=== PATIENT | female | born 1945 | race Caucasian/White ===

== ENCOUNTER 2024-08-23 08:23 | Inpatient (IN) | payer MEDICARE ==
[2024-08-23] MEDS ORDERED: NOREPINEPHRINE 8 MG/250 ML-D5W 250 ML ONE (08:34)
[2024-08-23] MEDS ORDERED: Sodium Chloride 0.9% 100 ML ONE (08:50)
[2024-08-23] MEDS ORDERED: Cefepime 2 GM VIAL ONE (08:50)
[2024-08-23 09:01] LABS: #Basophils 0.06 10x3/uL (0.0-0.2); %Basophils 0.4 % (0.0-1.0); %Eosinophils 0.6 % (0.0-10.0); %Lymphocytes 7.1 % (21.0-51.0); %Monocytes 7.8 % (0.0-10.0); %Neutrophils 83.3 % (42.0-75.0); Hematocrit 36.2 % (36.0-47.0); Hemoglobin 11.4 g/dL (12.0-16.0); Mean Corpuscular HGB CONC 31.5 g/dL (32.0-36.0); Mean Corpuscular Hemoglobin 35.1 pg (27.0-31.0); Mean Corpuscular Volume 111.4 fL (78.0-98.0); Mean Platelet Volume 12.5 fL (7.4-10.4); Platelet Count 214 10x3/uL (130-400); RBC Distribution Width 19.9 % (11.5-14.5); Red Blood Cell (RBC) Count 3.25 mill/uL (4.20-5.40)
[2024-08-23 09:16] LABS: Bacteria/HPF 4+ HPF (None Seen); Bilirubin Negative (Negative); Blood, Urine 3+ (Negative); CAUTI Indications for Culture Alt mental st,lethar; Clarity Extra Turbid (Clear); Glucose, Urine (Dipstick) Normal (Negative); Ketone, Urine Trace mg/dL (Negative); Leukocyte 500 Leu/uL (Negative); Nitrite Negative (Negative); Protein, Urine (Dipstick) 100 mg/dL (Neg-Trace); RBC/HPF Greater than 50 HPF (0-3); Specific Gravity, Urine 1.024 (1.002-1.036); Squamous Epithelial 0-3 HPF (0-3); Urobilinogen Normal mg/dL (Less than 2); WBC/HPF Greater than 50 HPF (0-3); Yeast-Budding 3+ HPF (None Seen); pH, Urine 5.5 (5.0-9.0)
[2024-08-23 09:16] LABS: Actual Bicarbonate (HCO3v) 20.4 mEq/L (22-28); Analyzer IN Cardio ER; Base Excess -8.2 mEq/L (-2.0 to +3.0); Calcium, Ionized (venous) 1.08 mmol/L (1.16-1.32); Chloride (VBG) 106 mmol/L (98-106); Hematocrit-VBG 41 % (36.0-47.0); Hemoglobin (Hb) 13.9 g/dL (11.7-16.1); Potassium (VBG) 4.84 mmol/L (3.70-5.30); Sodium 139 mmol/L (133-146)
[2024-08-23 09:17] LABS: Urine Culture Reflex Yes Yes
[2024-08-23 09:21] LABS: pH (venous) 7.189 (7.32-7.43)
[2024-08-23 09:29] LABS: INR-International Normal Ratio 5.1; Prothrombin Time 47.3 sec (12.0-14.7)
[2024-08-23 09:30] LABS: PTT 57.8 sec (22.9-36.1)
[2024-08-23 09:33] LABS: Burr Cells MODERATE= 6-15 cells HPF (0-1); Macrocytosis SLIGHT = 6-15 cells HPF (0-5); Platelet Adequacy Comment Platelets Normal; Poikilocytosis SLIGHT = 6-15 cells HPF (0-5); Polychromasia SLIGHT = 2-3 cells HPF (0-2)
[2024-08-23 09:41] LABS: ALT (SGPT) Less than 5 U/L (8-55); AST (SGOT) 15 U/L (5-34); Albumin 1.9 g/dL (3.4-4.8); Alkaline Phosphatase 165 U/L (40-110); Anion Gap 20 mmol/L (10-20); BUN (Urea Nitrogen) 86 mg/dL (9.8-20.1); Bilirubin, Total 0.9 mg/dL (0.2-1.2); Calc. Creatinine Clearance 0 mL/min (70-130); Calcium 7.9 mg/dL (7.8-10.44); Carbon Dioxide 19 mmol/L (23-31); Chloride 107 mmol/L (98-107); Estimated GFR 8; Globulin 2.8 g/dL (2.4-3.5); Glucose 76 mg/dL (83-110); Potassium 4.9 mmol/L (3.5-5.1); Protein, Total 4.7 g/dL (5.8-8.1); Sodium 141 mmol/L (136-145)
[2024-08-23] MEDS ORDERED: dilTIAZem 25 MG/5 ML VIAL ONE (09:41)
[2024-08-23 09:44] LABS: Troponin I 0.069 ng/mL (< 0.028)
[2024-08-23] MEDS ORDERED: Diltiazem HCl/D5W 125 ML ONE (09:45)
[2024-08-23] MEDS ORDERED: Dextrose 5% in Water 1,000 ML IV PRN (11:13)
[2024-08-23] MEDS ORDERED: Glucagon 1 MG/ML KIT IM PRN (11:13)
[2024-08-23] MEDS ORDERED: Dextrose 50% Abboject 50 ML SYRINGE SLOW IVP PRN (11:13)
[2024-08-23] MEDS ORDERED: Insulin Lispro 100 UNIT/ML 10 ML VIAL SC PRN ×2 (11:18)
[2024-08-23 11:45] LABS: Lactic Acid 1.72 mmol/L (0.5-2.2)
[2024-08-23] MEDS ORDERED: VANCOMYCIN IVPB PRN (11:45)
[2024-08-23 13:32] LABS: Hematocrit 37.6 % (36.0-47.0); Hemoglobin 11.7 g/dL (12.0-16.0); Platelet Count 231 10x3/uL (130-400)
[2024-08-23 13:35] LABS: Troponin I 0.254 ng/mL (< 0.028)
[2024-08-23] MEDS ORDERED: Vancomycin Dose by Levels Sliding Scale (Wt 71-99) FS SCH (13:45)
[2024-08-23] MEDS ORDERED: Heparin 25,000 units/D5W 500 ML ONE (13:48)
[2024-08-23] MEDS: Heparin 10,000 UNITS/ 10 ML VIAL SLOW IVP SCH (14:08)
[2024-08-23] MEDS: Heparin 25,000 units/D5W 500 ML IVPB SCH (14:09)
[2024-08-23] MEDS: Vancomycin (BATCH) 1.75 GM in Premix 1 BAG IVPB SCH (14:30)
[2024-08-23] MEDS: Albumin 25% 25 GM (100 mL) BOT IVPB SCH (15:32)
[2024-08-23] MEDS: Sodium Chloride 0.9% 1,000 ML IV SCH (15:32)
[2024-08-23 16:46] LABS: Troponin I 0.348 ng/mL (< 0.028)
[2024-08-23] MEDS: FLU (Fluad Triv) TS24-25 (65UP)/MF59C/PF 45 MCG/0.5 ML Syringe IM ONE (17:58)
[2024-08-23 18:14] LABS: Creatinine, Urine 137.62 mg/dL (47-110)
[2024-08-23 19:25] LABS: Anion Gap 16 mmol/L (10-20); BUN (Urea Nitrogen) 81 mg/dL (9.8-20.1); Calc. Creatinine Clearance 11 mL/min (70-130); Calcium 7.6 mg/dL (7.8-10.44); Carbon Dioxide 14 mmol/L (23-31); Chloride 113 mmol/L (98-107); Estimated GFR 9; Glucose 88 mg/dL (83-110); Potassium 4.4 mmol/L (3.5-5.1); Sodium 139 mmol/L (136-145)
[2024-08-23 19:48] LABS: Troponin I 0.559 ng/mL (< 0.028)
[2024-08-23] MEDS: Acetaminophen 325 MG TAB PO PRN (20:09)
[2024-08-23 22:30] LABS: PTT Greater than 250.0 sec (22.9-36.1)
[2024-08-23] MEDS: Sodium Bicarb 50 MEQ/50 ML Abboject 8.4% SYRINGE IVP SCH (23:35)
[2024-08-24] MEDS: Sodium Bicarb 50 MEQ/50 ML Abboject 8.4% SYRINGE ONE (00:10)
[2024-08-24] MEDS: Diltiazem HCl/D5W 125 MG in Premix 1 BAG IVPB SCH (03:12)
[2024-08-24] MEDS: NOREPINEPHRINE 8 MG/250 ML-D5W 250 ML IVPB SCH (04:31)
[2024-08-24 07:06] LABS: #Basophils 0.07 10x3/uL (0.0-0.2); %Basophils 0.5 % (0.0-1.0); %Eosinophils 0.8 % (0.0-10.0); %Lymphocytes 7.1 % (21.0-51.0); Hematocrit 29.3 % (36.0-47.0); Hemoglobin 9.5 g/dL (12.0-16.0); Mean Corpuscular HGB CONC 32.4 g/dL (32.0-36.0); Mean Corpuscular Hemoglobin 35.4 pg (27.0-31.0); Mean Corpuscular Volume 109.3 fL (78.0-98.0); Mean Platelet Volume 12.1 fL (7.4-10.4); Platelet Count 180 10x3/uL (130-400); RBC Distribution Width 19.6 % (11.5-14.5); Red Blood Cell (RBC) Count 2.68 mill/uL (4.20-5.40)
[2024-08-24 07:26] LABS: ALT (SGPT) Less than 5 U/L (8-55); AST (SGOT) 16 U/L (5-34); Alkaline Phosphatase 119 U/L (40-110); Anion Gap 16 mmol/L (10-20); BUN (Urea Nitrogen) 84 mg/dL (9.8-20.1); Calc. Creatinine Clearance 12 mL/min (70-130); Calcium 7.7 mg/dL (7.8-10.44); Carbon Dioxide 18 mmol/L (23-31); Chloride 111 mmol/L (98-107); Estimated GFR 9; Globulin 2.1 g/dL (2.4-3.5); Glucose 95 mg/dL (83-110); Protein, Total 5.1 g/dL (5.8-8.1); Sodium 141 mmol/L (136-145)
[2024-08-24 07:32] LABS: PTT 207.6 sec (22.9-36.1)
[2024-08-24] MEDS: Sodium Bicarbonate 150 MEQ in Sterile Water 1,000 ML IV SCH (09:15)
[2024-08-24] MEDS: Cefepime 1 GM in Sodium Chloride 0.9% 100 ML IVPB SCH (09:15)
[2024-08-24 09:30] LABS: Vancomycin, Trough 15.9 ug/mL
[2024-08-24] MEDS ORDERED: Vancomycin HCl 750 MG in Sodium Chloride 0.9% 250 ML 250 ML IVPB SCH (11:15)
[2024-08-24] MEDS: Vancomycin HCl 500 MG in Sodium Chloride 0.9% 100 ML IV SCH (11:26)
[2024-08-24] MEDS: Lactated Ringer's 500 ML IV SCH (14:28)
[2024-08-24 14:53] LABS: Hematocrit 27.5 % (36.0-47.0); Hemoglobin 8.9 g/dL (12.0-16.0)
[2024-08-24 15:40] LABS: PTT 195.7 sec (22.9-36.1)
[2024-08-24 15:45] VITALS: BMI 33.7
[2024-08-24 15:54] VITALS: BP 101/65
[2024-08-24] MEDS: Ondansetron PF 4 MG/2 ML Vial IVP PRN (18:32)
[2024-08-24] MEDS: Senokot S 8.6-50 MG TAB PO SCH (20:24)
[2024-08-24] MEDS: Simvastatin 10 MG TAB PO SCH (20:24)
[2024-08-25 04:53] VITALS: BMI 34.6
[2024-08-25 06:28] LABS: #Basophils 0.03 10x3/uL (0.0-0.2); %Basophils 0.3 % (0.0-1.0); %Eosinophils 2.7 % (0.0-10.0); %Lymphocytes 7.4 % (21.0-51.0); %Monocytes 10.9 % (0.0-10.0); %Neutrophils 78.2 % (42.0-75.0); Hematocrit 28.3 % (36.0-47.0); Hemoglobin 9.2 g/dL (12.0-16.0); Mean Corpuscular HGB CONC 32.5 g/dL (32.0-36.0); Mean Corpuscular Hemoglobin 34.3 pg (27.0-31.0); Mean Corpuscular Volume 105.6 fL (78.0-98.0); Mean Platelet Volume 12.6 fL (7.4-10.4); Platelet Count 177 10x3/uL (130-400); RBC Distribution Width 19.2 % (11.5-14.5); Red Blood Cell (RBC) Count 2.68 mill/uL (4.20-5.40)
[2024-08-25 06:37] LABS: Albumin 2.6 g/dL (3.4-4.8); Anion Gap 17 mmol/L (10-20); Calcium 7.3 mg/dL (7.8-10.44); Carbon Dioxide 23 mmol/L (23-31); Chloride 103 mmol/L (98-107); Globulin 1.8 g/dL (2.4-3.5); Glucose 76 mg/dL (83-110); Potassium 3.6 mmol/L (3.5-5.1); Protein, Total 4.4 g/dL (5.8-8.1); Sodium 139 mmol/L (136-145)
[2024-08-25 06:51] LABS: Troponin I 2.134 ng/mL (< 0.028)
[2024-08-25 07:05] LABS: Magnesium 1.5 mg/dL (1.6-2.6); Phosphorus 4.9 mg/dL (2.3-4.7)
[2024-08-25 07:35] LABS: Alkaline Phosphatase 111 U/L (40-110)
[2024-08-25 07:38] LABS: ALT (SGPT) Less than 5 U/L (8-55); AST (SGOT) 13 U/L (5-34)
[2024-08-25 07:58] LABS: BUN (Urea Nitrogen) 86 mg/dL (9.8-20.1); Calc. Creatinine Clearance 12 mL/min (70-130); Estimated GFR 9
[2024-08-25 09:34] LABS: Vancomycin, Random 19.4 ug/mL (See Comment)
[2024-08-25] MEDS: Polyethylene Glycol 3350 17 GM Packet PO SCH (09:38)
[2024-08-25] MEDS: Pantoprazole DR 40 MG TAB PO SCH (09:40)
[2024-08-25] MEDS ORDERED: Vancomycin Dose by Levels Sliding Scale (Wt 71-99) FS SCH (09:45)
[2024-08-25] MEDS: Potassium Chloride 20 MEQ TAB PO SCH (10:15)
[2024-08-25] MEDS: Magnesium Sulfate In Water 4 GM in Premix 1 BAG IVPB SCH (10:16)
[2024-08-25 10:38] LABS: Critical Call Chem Troponin I RESULT DECREASING; Troponin I 2.045 ng/mL (< 0.028)
[2024-08-25] MEDS: Pantoprazole 40 MG VIAL IVP SCH ×2 (10:59)
[2024-08-25] MEDS: Acetaminophen 500 MG TAB PO PRN (11:25)
[2024-08-25] MEDS: Potassium Chloride 20 MEQ in Premix 1 BAG IVPB SCH (12:10)
[2024-08-25 14:38] LABS: Hematocrit 28.6 % (36.0-47.0); Hemoglobin 9.5 g/dL (12.0-16.0); Platelet Count 168 10x3/uL (130-400)
[2024-08-25 16:08] VITALS: TEMP 98.2
[2024-08-25] MEDS: Morphine 2 MG/ML VIAL SLOW IVP SCH (16:09)
[2024-08-25] MEDS: Morphine 4 MG/ML VIAL ONE (16:39)
[2024-08-25] MEDS ORDERED: Morphine 4 MG/ML VIAL SLOW IVP SCH (17:30)
== END 2024-08-25 18:04 | disposition expired | DRG 871 ==
LOC: ERS 08:23 → ERHOLD 11:59 → CCU 15:09
PROVIDERS: ADMIT Student in an Organized Health Care Education/Training Program; ATTEND Student in an Organized Health Care Education/Training Program
PROC: 5A12012 Performance of Cardiac Output, Single, Manual (ICD-10-PCS; principal; 2024-08-23)
PROC: 05HY33Z Insertion of Infusion Device into Upper Vein, Percutaneous Approach (ICD-10-PCS; 2024-08-23)
PROC: 0T9B70Z Drainage of Bladder with Drainage Device, Via Natural or Artificial Opening (ICD-10-PCS; 2024-08-23)
PROC: 3E03329 Introduction of Other Anti-infective into Peripheral Vein, Percutaneous Approach (ICD-10-PCS; 2024-08-23)
PROC: 3E033XZ Introduction of Vasopressor into Peripheral Vein, Percutaneous Approach (ICD-10-PCS; 2024-08-23)
PROC: 30233J1 Transfusion of Nonautologous Serum Albumin into Peripheral Vein, Percutaneous Approach (ICD-10-PCS; 2024-08-23)
PROC: 5A09457 Assistance with Respiratory Ventilation, 24-96 Consecutive Hours, Continuous Positive Airway Pressure (ICD-10-PCS; 2024-08-23)
PROC: 5A0935A Assistance with Respiratory Ventilation, Less than 24 Consecutive Hours, High Flow/Velocity Cannula (ICD-10-PCS; 2024-08-25)
DX: A41.9 Sepsis, unspecified organism (principal); I21.A1 Myocardial infarction type 2; J18.1 Lobar pneumonia, unspecified organism; J96.01 Acute respiratory failure with hypoxia; J96.02 Acute respiratory failure with hypercapnia; R65.21 Severe sepsis with septic shock; N17.0 Acute kidney failure with tubular necrosis; I31.9 Disease of pericardium, unspecified; N39.0 Urinary tract infection, site not specified; J98.11 Atelectasis; G81.90 Hemiplegia, unspecified affecting unspecified side; N18.4 Chronic kidney disease, stage 4 (severe); I31.39 Other pericardial effusion (noninflammatory); E87.21 Acute metabolic acidosis; I42.9 Cardiomyopathy, unspecified; E87.20 Acidosis, unspecified; Z66 Do not resuscitate; Z51.5 Encounter for palliative care; B37.7 Candidal sepsis; E78.5 Hyperlipidemia, unspecified; R34 Anuria and oliguria; I87.8 Other specified disorders of veins; E11.65 Type 2 diabetes mellitus with hyperglycemia; I35.0 Nonrheumatic aortic (valve) stenosis; I50.9 Heart failure, unspecified; E11.22 Type 2 diabetes mellitus with diabetic chronic kidney disease; E87.6 Hypokalemia; E83.42 Hypomagnesemia; H40.9 Unspecified glaucoma; R57.8 Other shock; D63.1 Anemia in chronic kidney disease; D53.9 Nutritional anemia, unspecified; I48.0 Paroxysmal atrial fibrillation; L89.312 Pressure ulcer of right buttock, stage 2; I12.9 Hypertensive chronic kidney disease with stage 1 through stage 4 chronic kidney disease, or unspecified chronic kidney disease; E66.9 Obesity, unspecified; I25.10 Atherosclerotic heart disease of native coronary artery without angina pectoris; E86.9 Volume depletion, unspecified; E83.39 Other disorders of phosphorus metabolism; I46.8 Cardiac arrest due to other underlying condition; Z88.2 Allergy status to sulfonamides; Z86.73 Personal history of transient ischemic attack (TIA), and cerebral infarction without residual deficits; Z95.9 Presence of cardiac and vascular implant and graft, unspecified; Z68.34 Body mass index [BMI] 34.0-34.9, adult; Z88.1 Allergy status to other antibiotic agents; Z79.01 Long term (current) use of anticoagulants; Z79.899 Other long term (current) drug therapy; Z98.49 Cataract extraction status, unspecified eye; Z95.1 Presence of aortocoronary bypass graft; Z90.49 Acquired absence of other specified parts of digestive tract; Z98.890 Other specified postprocedural states
CPT/HCPCS: 36415; 36416; 51702; 71045; 80048; 80053; 80202; 81001; 82306; 82533; 82550; 82570; 82607; 82805; 83090; 83605; 83735; 83880; 84100; 84145; 84156; 84300; 84484; 84540; 85025; 85610; 85730; 87040; 87077; 87081; 87086; 87149; 93005; 93306; 94660; 94760; 96365; 96366; 96367; 96375; 97139; A4217; J0692; J1644; J2272; J2405; J2470; J3370; J3475; J7030; J7120; P9047